=== PATIENT | female | born 1970 | race Two or more races ===

== ENCOUNTER 2024-06-17 06:04 | Inpatient (IN) | payer BC ==
[~2024-06-17] VITALS: Ht 160 cm; Wt 89.6 kg
[2024-06-17] VITALS (7 sets, daily range): BP systolic 93–109; BP diastolic 55–74; PULSE 82–108; RESP 15–20; TEMP 97.9–98.4; O2SAT 93–97
[~2024-06-17 06:04] MED LIST: CHLO25TA2 PO; LEVO-849 GT; LISI20TA56 PO; ROSU10TA16 PO
[2024-06-17] MEDS: levoFLOXacin 500MG 200 ML IV ONE (06:33)
[2024-06-17] MEDS: TRANEXAMIC ACID 20 ML ONE (06:34)
[2024-06-17] MEDS: ceFAZolin 2 GM/D5W50ml 50 ML IV ONE (06:58)
[2024-06-17] MEDS: SUCCINYLCHOLINE CHLORIDE 20 MG/ML 10ML VIAL IV ONE (07:16)
[2024-06-17] MEDS ORDERED: HYDROmorphone HCL 2 MG/ML VL/or syr ONE (07:20)
[2024-06-17] MEDS ORDERED: fentaNYL CITRATE 100 MCG/2 ML VL ONE (07:21)
[2024-06-17] MEDS ORDERED: MIDAZOLAM HCL 2MG/2ML 2ml VIAL (1mg/ml) ONE (07:21)
[2024-06-17] MEDS ORDERED: fentaNYL CITRATE 5 ML ONE (07:21)
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
[2024-06-17] MEDS ORDERED: PROPOFOL 10 MG/ML 20 ML IV ONE ×2 (07:30→09:19)
[2024-06-17] MEDS ORDERED: DexAMETHasone SOD PHOS 10MG/1ML VIAL INJ ONE (07:30)
[2024-06-17] MEDS ORDERED: MORPHINE SULFATE INJ 2 MG/ml SYRG IV PRN (08:15)
[2024-06-17] MEDS ORDERED: NITROGLYCERIN 0.4 MG SL TAB SL PRN (08:15)
[2024-06-17] MEDS: D5W/SOD CHLO 0.9% 1,000 ML IV SCH (08:15)
[2024-06-17] MEDS ORDERED: ACETAMINOPHEN 325 MG TAB PO PRN (08:15)
[2024-06-17] MEDS ORDERED: ROCURONIUM 10MG/ML 10ML VIAL IV ONE (08:26)
[2024-06-17] MEDS: ONDANSETRON HCL 4 MG/2 ML VIAL IV ONE (09:00)
[2024-06-17] MEDS ORDERED: MORPHINE SULFATE 4 MG/ML SYR/VIAL IV PRN (09:00)
[2024-06-17] MEDS ORDERED: ePHEDrine SULFATE 50 MG/ML AMP IV PRN (09:00)
[2024-06-17] MEDS ORDERED: MIDAZOLAM HCL 2MG/2ML 2ml VIAL (1mg/ml) IV PRN (09:00)
[2024-06-17] MEDS ORDERED: hydrALAZINE HCL 20 MG/ML VL IV PRN (09:00)
[2024-06-17] MEDS ORDERED: HYDROmorphone HCL 2 MG/ML VL/or syr IV PRN (09:00)
[2024-06-17] MEDS ORDERED: SUGAMMADEX 200mg/2ml Vial (100MG/ML) IV ONE (09:44)
[2024-06-17] MEDS: DOCUSATE SOD 100 MG CAP PO SCH (10:00)
--- NOTE | 2024-06-17 10:24 | DVHOP2 ---
Operative Report - 2 Report Details Date: 06/17/24 Preop Diagnosis: cervical spinal stenosis Postop Diagnosis: same Surgeon: Chepe Harp MD Judo Teacher: Josselin Dunn NP Anesthesiologist: Eriberto Doherty MD Anesthesia: General Consent: The patient was informed of the risks and benefits of the procedure. These include but are not limited to complications of anesthesia, postoperative infection, incomplete relief of symptoms, recurrence of symptoms, damage to blood vessels, nerves and tendons, deep venous thrombosis, pulmonary embolism and possible need for repeat surgery in the future. Name of Procedure Performed see detailed note Procedure Details Procedure Details: Pre Op Diagnosis: Cervical Degenerative Disk Disease and Spinal Stenosis Ca using incapacitating neck pain, radiculopathy and progressive neurologic deficit Post Op Diagnosis: Cervical Degenerative Disk Disease and Spinal Stenosis Causing incapacitating neck pain, radiculopathy and progressive neurologic deficit Procedure: 1. Cervical 5 to 6 anterior cervical discectomy with Cervical 5-6 foraminotomies and facetectomies to decompression the spinal canal and Cervical 6 nerve roots 2. Cervical 5/6 artificial disk arthroplasty with MOBI C device 3. Microscope for micro dissection Surgeon: Chepe Harp MD Anesthesia: General Assist: Josselin Dunn NP Fluids and EBL: see anesthesia note Procedure Note: The patient was seen in the Pre-anesthesia Care Unit and the site of the incision was initialed by me with a felt tipped marker. All questions by the patient were answered to the satisfaction of the patient and the chart was reviewed. The patient was taken to the operating room and placed supine on the [facility] top table. General anesthesia was induced. Neuromonitoring leads were placed. A rolled towel was placed between the shoulder blades to hyperextend out the chest which will allow better exposure of the cervical spine. Halter traction to 10 pounds was placed. The arms were padded and adducted to the patient's side making sure all pulses in the hands were present. Tape traction was undertaken on the shoulders to give us better radiographic exposure of the distal cervical spine. A gel-pad was placed under the occiput and 5 degrees of extension was placed on the neck without adverse effects to the patient. The anterior neck was prepped and draped. Pre-operative antibiotics were given 30 minutes prior to the start of the procedure. A c-arm fluoroscope was used to kathy out the incision site. At this time, a time out was taken per usual protocol. Next an incision was made through the skin with a 15 blade scalpel through the subcutaneous tissue down to the platysma. Self-retainers were placed. The platysma was incised along the longitudinal border with a Me tzenbaum scissors. Blunt dissection was made through the deep cervical and pre- tracheal fascia taking care to protect the carotid sheath laterally and the Trachea/esophagus medially. The dissection was carried down to the prevertebral fascia. Any crossing vessels were ligated using a vascular clip or coagulated with a bovie. An esophageal retractor was next used to retract the trachea/esophagus and a bent [address] through the anterior annulus of the cervical disk and a lateral C-arm fluoroscopic image was taken to confirm that we were at the correct level. Next, bovie electrocautery was used to expose the bones cervical 5 and 6 and bipolar electrocautery was used to lift up the Longus colli and capitus muscles. Black-Belt Self Retainers were used to retract the longus colli and capitus muscles bilaterally as well as the trachea/esophagus to the right and the carotid sheath to the left. Smooth thin Black-Belt retractors were placed proximally and distally and a needle was placed again in the anterior annulus of the disk and an image taken to confirm the correct level. At this point, the microscope was wheeled in and an 11 blade scalpel incised the anterior annulus of the cervical cervical 5/6disk. Next, straight and curved curettes removed the remainder of the disks all the way down to the posterior longitudinal ligament. Carefully, a Kerison number one rongeur incised the posterior longitudinal ligament at the lateral end of the cervical 4/5 and 5/6disk and using a micro, blunt tip nerve hook to separate the posterior longitudinal ligament from the dura, alternating 1 mm and 2 mm Kerison rongeurs removed the posterior longitudinal ligament. Next, Kerison 1mm and 2 mm rongeurs were alternated to get under the uncinate processes and undercut them to perform foraminotomies and facetectomies at cervical 5/6levels to decompress the central canal and cervical 6nerve roots. Next the microscope was wheeled away and the c-arm fluoroscope was wheeled into the field and a lateral image was obtained. Increasing size graft trials were used starting at a 5 mm thick size until the proper tension in the disk space and height congregation obtained. We then placed a MOBI C deviceat cervical C5/6. 15mm wide, 13mm deep and 5mm thickness. Satisfactory placement was confirmed in the AP and lateral views using a C-arm fluoroscope. Copious irrigation of the wound with sterile saline and all bleeding was controlled before closure initiated. At this point, a 10 Salvadorean round Terry Drain was place deep to the Platysma muscle and the Platysma was approximated with one interrupted 0-Vicryl suture. The subcutaneous tissue was closed with interrupted 2-0 vicryl sutures and the skin was closed with petey. Sterile dressings were placed and a cervical collar placed, the patient extubated, transferred to the stretcher and taken to the Recovery Room in unremarkable condition. Condition Stable Disposition Still a Patient CHEPE HARP MD Jun 17, 2024 10:24
--- NOTE | 2024-06-17 10:48 | POSTOP ---
Post-Operative Note Post-Operative Note Preop Diagnosis Cervical degenerative disc disease and spinal stenosis causing incapacitating neck pain, radiculopathy and progressive neurologic deficit Postop Diagnosis: Cervical degenerative disc disease and spinal stenosis causing incapacitating neck pain, radiculopathy and progressive neurologic deficit Operation performed Cervical five to six anterior cervical diskectomy with cervical 5-6 foraminotomy and facetectomies to decompress the spinal canal and cervical six nerve roots. Cervical 5-6 artificial disc arthroplasty with Mobic C device Specimen None Anesthesia: General Anesthesiologist: Blood Loss(fluid mgmt) 150 mL Tourniquet Time None Surgeon Dr. Chepe Harp Avionics Technician Josselin Fofana, BUSINESS ACCOUNT EXECUTIVE Implant 15 mm x 13 mm x 5 mm MOBI-C device Complications & Mgmt No complications Additional Remarks Disposition: -Pending -Discharge RX: Pending -Follow up appointment: with Dr Harp on the day of her scheduled appointment which she has already arranged [id number] [facility] [address] [place]eda [address] [place] [id number] -Pain: - IV pain meds post op day 1, with PO supplementation, goal is to progress weaning off IV medications and control pain with PO only. morphine 1mg q 4 hours (PAIN 7-10) - P.O. analgesics:Tylenol 650MG (PAIN 1-3) [place] 10/325 mg (PAIN 4-6) - Muscle relaxers scheduled administration. This is a beneficial medications for the incisional pain as it is mostly related to muscle spasms. Flexeril 10 mg TID - Cepacol throat lozenges as needed for sore throat -Antibiotics Operative recommendations: -Postoperative dose:-Post operative antibiotics cefazolin 1 g IV piggyback every 8 hours x 48 hours total of 6 doses -DVT PPX: -Hold all chemical DVT/ blood thinners for 14 days postoperatively -use mechanical DVT PPX such as SCD's, ambulation -Activity: -Pending PT evaluation and patients progression -Sit at side of bed for meals -Goal: Ambulate independently and safely (may use assistive devices if needed) -Brace: - the patient can use a soft collar if she feels she needs support for a few days. -Medical Therapy goals: -Afebrile- Patient may develop a expected post operative fever by day 2-3, this may not be accompanied with a elevation in WBC. if fever develops: Acetaminophen for fever. Albuterol nebulizer Tx every 12 hours for 24 hours to facilitate adequate lung expansion and prevent development of atelectasis. -Euglycemic: bloods sugars under 130mmol/L for optimal healing -Normotensive: Avoid events of hypertension. This helps to keep post operative healing intact and avoids destabilization of beneficial hemostatic coagulation. Drains -Bulb drains: record output and characteristics of the drainage EVERY 6 HOURS- if there is no output indicate this by documenting 0ml output in note.. These will be to thumbprint compression unless otherwise ordered. Record output as well as amount in a note at least every 6 houtrs- more if indicated. Wound drainage is described by type, color, amount, and odor. Drainage can be 1 serous: Clear and thin, may be present in healing healthy wound. 2 serosanguineous containing blood may also be present and healthy healing wound 3. Sanguinous primarily blood 4. Purulent this is thick, white, and pus like. It may be indicated to give of a infection and should constitute a call to the provider immediately with the plan that the sample should be cultured. -Kee: -DC in OR -Dressings -Anterior cervical patients: Initial surgical dressing may be reinforced if needed. If there is excessive bleeding, leaking, drainage in the bulb drain notify provider -Bowel management: -Colace 100mg bid -Diet: -Clear liquid diet and advance as patient tolerates within dietary limitations ( example: diabetic, Cardiac) -Incentive Spirometer: -10 x hour while awake, RN please educate and observe repeat demonstration, have IS at bedside POD #1 -X-rays: - none indicated at this time -Consults: -Physical Therapy evaluation, treatment recommendations, and discharge recommendations Call with questions Chapin Fofana ACNP- Orthopaedic Spine Surgery nurse practitioner For Dr Caroline Harp Patient was examined, chart reviewed, labs evaluated, and diagnostic studies and findings analyzed. Case was discussed with Dr. Chepe Harp who formulated the plan of care. This medical document was created using an electronic medical record system with [employer] system. Although this document has been carefully reviewed, there might still be some phonetic and typographical errors. These areas are purely typographical due to imperfections of the software programs, and do not reflect any compromise in the patient's medical care. Date 06/17/24 Time 10:41 JOSSELIN FOFANA NP Jun 17, 2024 10:48
--- NOTE | 2024-06-17 16:00 | DVH ---
C-ARM FLUOROSCOPY: PROCEDURE: C5-C6 disc replacement FLUOROSCOPY TIME: 2 minutes 11 seconds DAP: 9 mgy FINDINGS: Spot intraoperative C arm radiographs demonstrating C5-C6 disc replacement. IMPRESSION: Please refer to surgical report for detailed findings.
[2024-06-17] MEDS: CYCLOBENZAPRINE HCL 10 MG TAB PO SCH (17:38)
[2024-06-17] MEDS: ceFAZolin 1GM/50ML 50 ML IV SCH (17:38)
[2024-06-17] MEDS: MORPHINE SULFATE INJ 2 MG/ml SYRG IV PRN (17:39)
[2024-06-17] MEDS: ONDANSETRON HCL 4 MG/2 ML VIAL IV PRN (17:40)
[2024-06-18 01:00] VITALS: BP 97/54; PULSE 108; RESP 20; TEMP 98.5; O2SAT 100
[2024-06-18 05:00] VITALS: BP 105/63; PULSE 95; RESP 18; TEMP 98.4; O2SAT 95
[2024-06-18 08:00] VITALS: PULSE 72; RESP 18; O2SAT 97
[2024-06-18 09:00] VITALS: BP 117/69; PULSE 84; RESP 16; TEMP 98.8; O2SAT 94
--- NOTE | 2024-06-18 09:22 | DVHPN2 ---
Progress Note - Surgical Date Seen: Jun 18, 2024 Post op day Post op day: 1 Subjective Review of Systems: HEENT:Normal, CVS:Normal, RESPIRATORY:Normal, GI:Normal, :Normal, MSK:Normal, NEURO:Abnormal (cervical stenosis with neruogentic clautication sever headaches and upper extremity involvement) Objective Vital signs Vital Sign Date Time Temp Pulse Resp B/P (MAP) Pulse Ox O2 Delivery O2 Flow Rate FiO2 06/18/24 08:00 72 18 97 Room Air* 0 21 06/18/24 05:00 98.4 105/63 (77) 98.4 Total Intake and Output 06/17/24 06/17/24 06/18/24 15:00 23:00 07:00 Intake Total 250 ml 350 ml Output Total 4 ml Balance -4 ml 250 ml 350 ml Medications Current Medications Medications Dose Ordered Sig/Amanda Route Start Time Stop Time Status Last Admin Dose Admin Dextrose/Sodium Chloride 1,000 ml @ 100 mls/hr Q10H IV 06/17/24 08:15 06/18/24 05:26 100 MLS/HR Ondansetron HCl 4 mg Q4HP PRN IV 06/17/24 08:15 06/17/24 17:40 4 MG Acetaminophen 650 mg Q6HP PRN PO 06/17/24 08:15 Acetaminophen/ Hydrocodone Bitart 1 tab Q6HP PRN PO 06/17/24 08:15 Morphine Sulfate 1 mg Q4HP PRN IV 06/17/24 08:15 06/17/24 17:39 1 MG Cyclobenzaprine HCl 10 mg TID PO 06/17/24 14:00 06/18/24 05:26 10 MG Docusate Sodium 100 mg BID PO 06/17/24 10:00 06/17/24 21:36 100 MG Cefazolin Sodium 50 ml @ 100 mls/hr Q8HR IV 06/17/24 14:00 06/19/24 06:29 06/18/24 05:26 100 MLS/HR Nitroglycerin 0.4 mg Q5MINP PRN SL 06/17/24 08:15 Morphine Sulfate 2 mg Q30M PRN IV 06/17/24 08:15 Examination: GENERAL:Normal, HEENT:Normal, NECK:Abnormal (Patient normally has complaints of neck pain severe headaches and difficulty utilizing her hands due to upper extremity fatigue and dropping items), CVS:Normal, ABDOMEN:Normal, MSK:Normal, SKIN:Normal (Left anterior wound site edges are well approximated with petey, minimal swelling no ecchymosis), NEURO:Normal (Patient verbalizing resolution of preoperative symptoms excluding slight pain to her left posterior neck), :Normal Problem List/Assessment/Plan Problems: (1) Cervical stenosis of spinal canal (2) Postoperative pain after spinal surgery (3) Muscle spasms of neck Assessment and Plan Events of today Drain discontinued Patient has been up walking in room able to ambulate has passed gas in his tolerating food Patient states that she has minimal sore throat with swallowing and eating Patient and are both comfortable with her going home today Disposition: Plan to discharge the patient home -Discharge RX: Oral analgesia and muscle relaxers will be sent to patient's pharmacy of choice -Follow up appointment: with Dr Harp on the day of her scheduled appointment which she has already arranged [id number] [facility] [address] Te[address]eda [address] [place] [phone] -Pain: - IV pain meds post op day 1, with PO supplementation, goal is to progress weaning off IV medications and control pain with PO only. morphine 1mg q 4 hours (PAIN 7-10) - P.O. analgesics:Tylenol 650MG (PAIN 1-3) [place] 10/325 mg (PAIN 4-6) - Muscle relaxers scheduled administration. This is a beneficial medications for the incisional pain as it is mostly related to muscle spasms. Flexeril 10 mg TID - Cepacol throat lozenges as needed for sore throat -Antibiotics Operative recommendations: -Postoperative dose:-Post operative antibiotics cefazolin 1 g IV piggyback every 8 hours x 48 hours total of 6 doses -DVT PPX: -Hold all chemical DVT/ blood thinners for 14 days postoperatively -use mechanical DVT PPX such as SCD's, ambulation -Activity: -Pending PT evaluation and patients progression -Sit at side of bed for meals -Goal: Ambulate independently and safely (may use assistive devices if needed) -Brace: - the patient can use a soft collar if she feels she needs support for a few days. -Medical Therapy goals: -Afebrile- Patient may develop a expected post operative fever by day 2-3, this may not be accompanied with a elevation in WBC. if fever develops: Acetaminophen for fever. Albuterol nebulizer Tx every 12 hours for 24 hours to facilitate adequate lung expansion and prevent development of atelectasis. -Euglycemic: bloods sugars under 130mmol/L for optimal healing -Normotensive: Avoid events of hypertension. This helps to keep post operative healing intact and avoids destabilization of beneficial hemostatic coagulation. -Dressings -Anterior cervical patients: Dressing may be changed by nursing staff -Bowel management: -Colace 100mg bid -Diet: -patient is tolerating diet -Incentive Spirometer: -10 x hour while awake, RN please educate and observe repeat demonstration, have IS at bedside POD #1 -X-rays: - none indicated at this time -Consults: -Physical Therapy evaluation, treatment recommendations, and discharge recommendations Call with questions Chapin Fofana ACNP- Orthopaedic Spine Surgery nurse practitioner For Dr Caroline Harp Patient was examined, chart reviewed, labs evaluated, and diagnostic studies and findings analyzed. Case was discussed with Dr. Chepe Harp who formulated the plan of care. This medical document was created using an electronic medical record system with [employer] dictation system. Although this document has been carefully reviewed, there might still be some phonetic and typographical errors. These areas are purely typographical due to imperfections of the software programs, and do not reflect any compromise in the patient's medical care. My Orders My Orders Orders - CAMILA FOFANA NP Procedure Category Date Status Time Is At Bedside. ESTEFANY 06/17/24 In Process 10:35 Enrike Drain To Closed ESTEFANY 06/17/24 In Process Suction 10:35 Drain Assessment ESTEFANY 06/17/24 In Process 10:40 Admit ADMIT 06/17/24 Transmitted 12:28 Plan discussed with Plan discussed with: Patient, Spouse, Other (Devang MARIE [id number]) Visit Coding Surgery Date of Service if different f: Jun 18, 2024 Billing Provider: CAMILA FOFANA NP Surgery Visit Codes: NOT BILLABLE CAMILA FOFANA NP Jun 18, 2024 09:22
[2024-06-18] MEDS: HYDROcodone-ACET 10/325MG TAB PO PRN (09:31)
--- NOTE | 2024-06-18 12:22 | DVHDS2 ---
ASSESSMENT ASSESSMENT Hospital Course The patient arrived for a elective spine surgery with Dr. HARP. Surgery went as planned with no complications. After a short stay in the PACU patient was admitted to the hospital for postoperative care and pain management over the course of 1 postoperative days the patient was able to tolerate a diet, ambulate independently, the pain has been managed with oral analgesics. The surgical site is well-approximated with sutures, some residual drainage continues from drain insertion sites after removal, however it is manageable with daily wound care and dressing changes. Some improvement to preoperative symptoms of extremities, strength and motion. There is new post operative pain that is localized to the surgical site. The patient will follow-up with Dr. Harp for wound check and suture check or staple removal. Assessment Cervical degenerative disc disease and spinal stenosis causingincapacitating neck pain, radiculopathy and progressive neurologic deficit Problems: (1) Cervical stenosis of spinal canal Assessments: Patient verbalizes improvement in preoperative symptoms, we expect this to resolve after the healing process is complete (2) Muscle spasms of neck Assessments: Acute this is expected postoperatively. Muscle relaxers sent to patient's pharmacy of choice (3) Postoperative pain after spinal surgery Assessments: Acute this is expected postoperatively oral analgesics sent to patient's pharmacy of choice CAMILA FOFANA NP Jun 18, 2024 12:22
[2024-06-18] MEDS ORDERED: HYDR-4798 PO (12:28)
[2024-06-18] MEDS ORDERED: DOCU-265 PO (12:28)
[2024-06-18] MEDS ORDERED: CYCL-611 PO (12:28)
--- NOTE | 2024-06-18 12:32 | DVHDS2 ---
Discharge Summary Date of Admission Jun 17, 2024 at 08:04 Date of Discharge: Jun 18, 2024 Admitting Diagnosis Cervical stenosis patient arrived for elective surgery with Dr. Chepe Higginbotham Date of procedure . Cervical 5 to 6 anterior cervical discectomy with Cervical 5-6 foraminotomies and facetectomies to decompression the spinal canal and Cervical 6 nerve roots Cervical 5/6 artificial disk arthroplasty with MOBI C device Wounds: Left anterior neck, wound well approximated with petey. No swelling redness drainage or bleeding her ecchymosis. Patient has full range of motion, able to handle secretions tolerating food airway is patent. Brief Hx & Hospital Course: The patient arrived for a elective spine surgery with Dr. HARP. Surgery went as planned with no complications. After a short stay in the PACU patient was admitted to the hospital for postoperative care and pain management over the course of 1 postoperative days the patient was able to tolerate a diet, ambulate independently, the pain has been managed with oral analgesics. The surgical site is well-approximated with sutures, some residual drainage continues from drain insertion sites after removal, however it is manageable with daily wound care and dressing changes. Some improvement to preoperative symptoms of extremities, strength and motion. There is new post operative pain that is localized to the surgical site. The patient will follow-up with Dr. Harp for wound check and suture check or staple removal. Operations or Procedures Cervical five to six anterior cervical diskectomy with cervical 5-6 foraminotomy and facetectomies to decompress the spinal canal and cervical six nerve roots. 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 Just natural movement is all we expect at this point in time Follow Up/Referral: Keep your postoperative appointment Medications: Oral analgesics and muscle relaxers sent to pharmacy of choice New Medications: Cyclobenzaprine HCl (Cyclobenzaprine Hydrochlo) 10 Mg Tab 10 MG PO TID for 30 Days, #90 TAB Docusate Sodium (Docusate Sodium) 100 Mg Cap 100 MG PO BIDP PRN for 15 Days, #30 CAP Hydrocodone-Acetaminophen (Hydrocodone Bitartrate/AC 10-325 mg) 1 Tab Tab 1 TAB PO Q6HP PRN for 10 Days, #40 TAB Continued Medications: Chlorthalidone (Chlorthalidone) 25 Mg Tab 25 MG PO DAILY, TAB Levothyroxine Sodium (Synthroid Tablet) 100 Mcg Tb 112 MCG GT DAILY, TAB Lisinopril (Lisinopril) 20 Mg Tab 10 MG PO DAILY, TAB Rosuvastatin Calcium (Crestor) 10 Mg Tab 10 MG PO DAILY, TAB Discharge Statement: "Patient was advised to return to the ER or call 911 if any headaches, dizziness, shortness of breath, chest pain, abdominal pain, bleeding, fevers, or worsening of medical condition. Patient was counseled about treatment plan, medications, possible side effects, patientverbalized understanding. All questions were answered to the best of my ability. This discharge took greater then 30 minutes in planning, reviewing documentation, counseling the patient, and discussing with other team members." ASSESSMENT ASSESSMENT Hospital Course The patient arrived for a elective spine surgery with Dr. HARP. Surgery went as planned with no complications. After a short stay in the PACU patient was admitted to the hospital for postoperative care and pain management over the course of 1 postoperative days the patient was able to tolerate a diet, ambulate independently, the pain has been managed with oral analgesics. The surgical site is well-approximated with sutures, some residual drainage continue s from drain insertion sites after removal, however it is manageable with daily wound care and dressing changes. Some improvement to preoperative symptoms of extremities, strength and motion. There is new post operative pain that is localized to the surgical site. The patient will follow-up with Dr. Harp for wound check and suture check or staple removal. Assessment Acute this is expected postoperatively oral analgesics sent to patient'spharmacy of choice Problems: (1) Cervical stenosis of spinal canal Assessments: Patient verbalizes improvement in preoperative symptoms, we expect this to resolve after the healing process is complete (2) Muscle spasms of neck Assessments: Acute this is expected postoperatively. Muscle relaxers sent to patient's pharmacy of choice (3) Postoperative pain after spinal surgery Assessments: Acute this is expected postoperatively oral analgesics sent to patient's pharmacy of choice CAMILA FOFANA NP Jun 18, 2024 12:32
[2024-06-18 13:00] VITALS: BP 114/57; PULSE 91; RESP 16; TEMP 98.5; O2SAT 90
== END 2024-06-18 16:10 | disposition home health service (06) | DRG 518 ==
LOC: SUR 06:04 → OVERFLOW 08:04 → EAST 13:23
PROVIDERS: ADMIT Orthopaedic Surgery; ATTEND Nurse Practitioner
PROC: 0RB30ZZ Excision of Cervical Vertebral Disc, Open Approach (ICD-10-PCS; 2024-06-17)
PROC: 01N10ZZ Release Cervical Nerve, Open Approach (ICD-10-PCS; 2024-06-17)
PROC: 00NW0ZZ Release Cervical Spinal Cord, Open Approach (ICD-10-PCS; 2024-06-17)
PROC: 4A11X4G Monitoring of Peripheral Nervous Electrical Activity, Intraoperative, External Approach (ICD-10-PCS; 2024-06-17)
PROC: 0RR30JZ Replacement of Cervical Vertebral Disc with Synthetic Substitute, Open Approach (ICD-10-PCS; principal; 2024-06-17 07:21)
DX: M48.02 Spinal stenosis, cervical region (principal); M50.30 Other cervical disc degeneration, unspecified cervical region; M54.12 Radiculopathy, cervical region; Z79.899 Other long term (current) drug therapy
CPT/HCPCS: 72040; 76000; 86850; 86900; 86901; 97163; G0378; J0330; J1100; J1956; J2250; J2405; J2704; J7042